=== PATIENT | male | born 1950 | race Caucasian/White ===

== ENCOUNTER 2017-03-08 09:24 | Inpatient (IN) | payer BC ==
--- NOTE | ~2017-03-08 | DS ---
Discharge Summary [facility] [address] [facility] [place]. [address] NAME: MITRA ZAMORA : 48 STATUS : DIS IN PAT#: [id number] AGE: 66 ADM/REG DATE : 03/08/17 MR#: [id number] REPORT SERV DATE: 03/25/17 DICTATED BY: MOHIT AVILES JR. DATE: 03/24/17 REPORT STATUS : Draft TRANSCRIBED BY: MODNathan DATE: 03/24/17 Data Collection from hospitalization DISCHARGE DIAGNOSES: 1. Palpable lymphoma. 2. History of Langerhans cell histiocytosis. 3. Coronary artery disease. 4. History of stroke. 5. History of histiocytic sarcoma. 6. Iron-deficiency anemia. CONSULTATIONS: None. PROCEDURES PERFORMED: Right bronchoscopy, right thoracoscopy with right parietal pleural biopsy, sampling of mediastinal lymph node, right epicardial adenopathy, chemical pleurodesis with Betadine and intercostal nerve block, 03/08/2017. 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 Pleura, right, biopsy-chronic follicular pleuritis, no Langerhans cell histiocytosis, no lymphoma. Pericardial fluid cytology (ThinPrep and cytospin)-abundant lymphocytes cannot exclude involvement by B-cell lymphoproliferative disorder. MEDICATIONS: Aspirin 325 mg daily, Super B with C one capsule daily, [place] 5/325 one to two tablets every four hours as needed. CONDITION AT DISCHARGE: Stable. DISPOSITION: The patient was discharged home on a regular diet with activities as instructed. He would follow up with hi, 04/05/2017. HOSPITAL COURSE: This is a 66-year-old man, who has a history of Langerhans cell histiocytosis. He had an inguinal lymph node biopsy in September 2014, which had revealed Langerhans cell histiocytosis with negative bone marrow biopsy. He had undergone chemotherapy as well as radiation therapy and had been followed with surveillance scanning. A PET-CT on 02/09/2017 demonstrated multiple FDG-avid lesions with one being in the posterior right pleura, measuring 2.2 x 1.3 cm with maximum SUV of 12.5. There was a 3 cm right cardiophrenic angle node with SUV of 10.3 and a 1.5 cm left upper pleural nodule with SUV of 9.7. Other areas of activity includes subcutaneous nodules in the fat layer of the posterior cervical neck, chest, and shoulders and the lesion was in the left biceps, bilateral iliac chain adenopathy, and there was also persistent splenomegaly and enlarging moderate right-sided pleural effusion. Treatment options were discussed and it was elected to proceed with surgical intervention. He was admitted to the hospital at this time for further evaluation and treatment. Upon admission, he was taken to the operating room, where he underwent the above-mentioned procedure. He tolerated this well and there were no complications. On postop day one, urine output was adequate. O2 saturation was 90% on room air. Chest tube remained in place Discharge Summary [place] [id number] [place]. [address] NAME: MITRA ZAMORA : 48 STATUS : DIS IN PAT#: [id number] AGE: 66 ADM/REG DATE : 03/08/17 MR#: [id number] REPORT SERV DATE: 03/25/17 DICTATED BY: MOHIT AVILES JR. DATE: 03/24/17 REPORT STATUS : Draft TRANSCRIBED BY: LUZ DATE: 03/24/17 to suction. A dose of Lasix was given. Over the next couple of days, he continued to have good pain control. Discharge planning was performed. The O2 saturation increased to 98% on room air. The epidural catheter was removed. The tip was intact. On 03/11/2017, he was afebrile. His vital signs were stable. Pathology results were reviewed. Discharge instructions were given. The chest tube was removed. Chest x-ray showed no pneumothorax or effusion. Due to his improved and stable condition, he was discharged home with the above- stated instructions. Information collected by: Naty Barragan I submit the above information as my discharge summary. PARUL/LUZ Mohit Aviles Jr., M.D. / [id number] CC: Milana Mehta Jr., JOSEPH LEE
--- NOTE | ~2017-03-08 | OP ---
Record Of Operation [facility] [address] [place]. [address] NAME: MITRA ZAMORA : 48 STATUS : ADM IN PAT#: [id number] AGE: 66 ADM/REG DATE : 03/08/17 MR#: [id number] REPORT SERV DATE: 03/09/17 DICTATED BY: MOHIT AVILES JR. DATE: 03/08/17 REPORT STATUS : Draft TRANSCRIBED BY: MODNathan DATE: 03/08/17 DATE OF PROCEDURE: 03/08/2017 PREOPERATIVE DIAGNOSIS: History of Langerhans cell histiocytosis versus previous lymphoma status post chemotherapy, recurrent right pleural effusion with mediastinal and chest wall PET avid lesions, known coronary artery disease, history of previous stroke. POSTOPERATIVE DIAGNOSIS: Probable lymphoma. NAME OF OPERATION: Right bronchoscopy, right thoracoscopy with right parietal pleural biopsy, sampling of mediastinal lymph nodes, right epicardial adenopathy, chemical pleurodesis with Betadine, intercostal nerve block. RESIDENT SURGEON: Raymond Cherry MD. DRAWER LINER: Osvaldo Corrigan ANESTHESIA: General endotracheal. FINDINGS: The patient noted was noted to have no endobronchial lesions or contraindication to resection. Upon exploration of his chest, he had approximately a liter and half of serous fluid within the chest cavity and the lung was not trapped. There were 2 areas of abnormality, one in the right lateral chest wall which was seen on PET-CT scan as well as the second in the pericardial phrenic angle, just anterior to the phrenic nerve. There was a cluster of abnormal lymph nodes in this region. This fluid was sent for cytology at the request of the pathologist. The frozen section of the lymph nodes suggested an abnormal lymphocyte proliferation suggestive of a lymphoma. Material was sent for flow cytometry. There was good re-expansion of the lung at the end of the case. Chemical pleurodesis was performed. DETAILS OF OPERATION: After adequate general anesthesia, the patient was intubated. Bronchoscopy was performed noting no endobronchial lesions or contraindication to resection. A left-sided double-lumen endotracheal tube was then placed. The patient was then positioned in the left lateral decubitus position. The right chest was prepped and draped in routine sterile fashion. A small incision made overlying the lower intercostal space. Through this single incision site, the above findings were noted. The fluid was evacuated and sent for cytology. The two regions of abnormality seen on PET scan were easily visualized. Both were sampled and biopsied. One was in the right cardiophrenic angle or in the epicardial space just anterior to the phrenic nerve, the second was in the lateral chest wall. Both these areas were excised. Frozen section confirmed the above findings. A chemical pleurodesis was then performed with Betadine. A 32-Lao chest tube was placed. The lung was reinflated. An intercostal nerve block had been performed. The single trocar incision was closed with running Vicryl sutures. The skin was closed with running monofilament suture. A Dermabond dressing was applied and the procedure was terminated at this point. The patient tolerated the procedure well and taken back to recovery room in stable condition. Record Of Operation [address] [place]. [address] NAME: MITRA ZAMORA : 48 STATUS : ADM IN PAT#: [id number] AGE: 66 ADM/REG DATE : 03/08/17 MR#: [id number] REPORT SERV DATE: 03/09/17 DICTATED BY: MOHIT AVILES JR. DATE: 03/08/17 REPORT STATUS : Draft TRANSCRIBED BY: LUZ DATE: 03/08/17 /LUZ Mohit Aviles Jr., M.D. / [id number] CC: Milana Mehta Jr., M.D. Jonathan T Whaley, MD John Wood, M.D.
[~2017-03-08 09:24] MED LIST: *DENIES; ALTA2.5 PO; AMB10 PO; ASA5GR PO; ASAB PO; ASABAYER PO; BISR PR; COREG6 PO; DIGITEK0.25 MG PO; DSS PO; EZFE 200200 MG PO; IRON OTC PO; K-TABS10 MEQ PO; KLOR-CON 1010 MEQ PO; KLOR-CON M1010 MEQ PO; KONSYL100 % PO; L40 PO; L80 PO; LAN25 PO; LIPITOR40 PO; LOVENOX1C SC; LUNESTA3 MG PO; MIRALAXPKT PO; MOMUD PO; OXYCOD PO; OXYCON20 PO; OXYCON40 PO; P10; P20 PO; PERCOCET1 TA4 PO; PHENADOZ25 MG RE; PLAVIX PO; PR25 PO; PRILOSEC40 MG PO; PROTONIX PO; REG PO; REST15 PO; SENTAB PO; SPIRO50 PO; STERAPRED DS10 MG; STOOL SOFTEN100 MG PO; SUPER B W/C PO; TRAZ50 PO; VITAMIN B PO; ZOFRAN8 PO
[2017-03-08 10:15] LABS: BASOPHILS 0.2 %; BASOPHILS ABSOLUTE 0.01 10/3/uL (0.0-0.16); EOSINOPHILS 1.1 %; EOSINOPHILS ABSOLUTE 0.05 10/3/uL (0.0-0.53); HEMATOCRIT 42.5 % (40.0-51.0); HEMOGLOBIN 15.2 g/dL (13.6-17.8); LYMPHOCYTES ABSOLUTE 0.47 10/3/uL (0.67-4.30); MEAN CORPUS HGB CONC 35.8 g/dL (32.0-36.0); MEAN CORPUSCULAR HEMOGLOB 30.8 pg (26.0-34.0); MEAN PLATELET VOLUME 9.5 fL (9.2-13.0); MONOCYTES 9.5 %; MONOCYTES ABSOLUTE 0.45 10/3/uL (0.21-1.20); NEUTROPHILS 79.2 %; NEUTROPHILS ABSOLUTE 3.74 10/3/uL (2.02-8.40); PLATELET COUNT 116 10/3/uL (150-400); RBC DISTRIBUTION WIDTH 14.6 % (12.0-16.0); RED CELL COUNT 4.94 10/6/uL (4.7-6.1); WHITE BLOOD CELLS 4.7 10/3/uL (4.5-10.5)
[2017-03-08 10:16] LABS: MANUAL DIFF NO %
[2017-03-08 10:20] LABS: INTERNATIONAL NORMAL RATI 1.2 UNITS (-)
[2017-03-08 10:31] LABS: A/G RATIO 1.4 (0.7-1.9); ALBUMIN 3.5 G/DL (3.5-5.0); ALKALINE PHOSPHATASE 52 U/L (45-117); BUN (BLOOD UREA NITROGEN) 26 MG/DL (6-23); CALCIUM, SERUM 8.5 MG/DL (8.5-10.4); CHLORIDE, SERUM 106 MMOL/L (96-112); CO2 (CARBON DIOXIDE) 30 MMOL/L (24-34); GFR AFRICAN AMERICAN 80 ML/MIN (>=60); GFR NON AFRICAN AMERICAN 69 ML/MIN (>=60); GLOBULIN 2.5 G/DL (2.5-4.1); GLUCOSE, SERUM 95 MG/DL (60-99); POTASSIUM, SERUM 4.6 MMOL/L (3.5-5.3); SGOT(AST) 15 U/L (5-40); SGPT(ALT) 18 U/L (5-65); SODIUM, SERUM 140 MMOL/L (135-148); TOTAL BILIRUBIN 1.2 MG/DL (0-1.2)
[2017-03-09 05:56] LABS: BASOPHILS 0 %; EOSINOPHILS 0 %; HEMATOCRIT 44.3 % (40.0-51.0); HEMOGLOBIN 15.7 g/dL (13.6-17.8); IMMATURE GRANULOCYTES 0.1 %; IMMATURE GRANULOCYTES ABSOLUTE 0.01 10/3/uL (0.0-0.11); LYMPHOCYTES 1.9 %; LYMPHOCYTES ABSOLUTE 0.16 10/3/uL (0.67-4.30); MEAN CORPUS HGB CONC 35.4 g/dL (32.0-36.0); MEAN CORPUSCULAR VOLUME 87.4 fL (80-100); MEAN PLATELET VOLUME 9.7 fL (9.2-13.0); MONOCYTES ABSOLUTE 0.25 10/3/uL (0.21-1.20); NEUTROPHILS ABSOLUTE 7.84 10/3/uL (2.02-8.40); PLATELET COUNT 143 10/3/uL (150-400); RBC DISTRIBUTION WIDTH 14.4 % (12.0-16.0); RED CELL COUNT 5.07 10/6/uL (4.7-6.1)
[2017-03-09 05:59] LABS: MANUAL DIFF NO %; WHITE BLOOD CELLS 8.3 10/3/uL (4.5-10.5)
[2017-03-09 06:02] LABS: CALCIUM, SERUM 8.3 MG/DL (8.5-10.4); CHLORIDE, SERUM 104 MMOL/L (96-112); CREATININE 1.51 MG/DL (0.70-1.30); GFR AFRICAN AMERICAN 55 ML/MIN (>=60); GFR NON AFRICAN AMERICAN 47 ML/MIN (>=60); POTASSIUM, SERUM 4.3 MMOL/L (3.5-5.3); SODIUM, SERUM 139 MMOL/L (135-148)
[2017-03-09 06:03] LABS: BUN (BLOOD UREA NITROGEN) 21 MG/DL (6-23); CO2 (CARBON DIOXIDE) 24 MMOL/L (24-34); GLUCOSE, SERUM 225 MG/DL (60-99)
[2017-03-10 05:14] LABS: BUN (BLOOD UREA NITROGEN) 24 MG/DL (6-23); CALCIUM, SERUM 8.3 MG/DL (8.5-10.4); CHLORIDE, SERUM 103 MMOL/L (96-112); CREATININE 1.34 MG/DL (0.70-1.30); GFR AFRICAN AMERICAN 63 ML/MIN (>=60); GFR NON AFRICAN AMERICAN 54 ML/MIN (>=60); POTASSIUM, SERUM 4.6 MMOL/L (3.5-5.3); SODIUM, SERUM 139 MMOL/L (135-148)
[2017-03-10 05:15] LABS: CO2 (CARBON DIOXIDE) 30 MMOL/L (24-34); GLUCOSE, SERUM 119 MG/DL (60-99)
[2017-03-11 05:06] LABS: CALCIUM, SERUM 8.1 MG/DL (8.5-10.4); CHLORIDE, SERUM 105 MMOL/L (96-112); CO2 (CARBON DIOXIDE) 28 MMOL/L (24-34); CREATININE 1.18 MG/DL (0.70-1.30); GFR AFRICAN AMERICAN 74 ML/MIN (>=60); GFR NON AFRICAN AMERICAN 63 ML/MIN (>=60); GLUCOSE, SERUM 106 MG/DL (60-99); POTASSIUM, SERUM 4.5 MMOL/L (3.5-5.3); SODIUM, SERUM 139 MMOL/L (135-148)
[2017-03-11 05:08] LABS: BUN (BLOOD UREA NITROGEN) 19 MG/DL (6-23)
[2017-03-11] MEDS ORDERED: NORCO1 TA1 PO (11:08)
== END 2017-03-11 12:50 | disposition home or self-care (01) | DRG 821 ==
LOC: SDC/OF 09:24 → 5NO 19:34
PROVIDERS: Nurse Practitioner Acute Care; Thoracic Surgery (Cardiothoracic Vascular Surgery)
PROC: 07B74ZZ Excision of Thorax Lymphatic, Percutaneous Endoscopic Approach (ICD-10-PCS; 2017-03-08)
PROC: 3E0L3GC Introduction of Other Therapeutic Substance into Pleural Cavity, Percutaneous Approach (ICD-10-PCS; 2017-03-08)
PROC: 3E0T3BZ Introduction of Anesthetic Agent into Peripheral Nerves and Plexi, Percutaneous Approach (ICD-10-PCS; 2017-03-08)
PROC: 0BBN4ZX Excision of Right Pleura, Percutaneous Endoscopic Approach, Diagnostic (ICD-10-PCS; principal; 2017-03-08 11:30)
DX: C85.92 Non-Hodgkin lymphoma, unspecified, intrathoracic lymph nodes (principal); J90 Pleural effusion, not elsewhere classified; I25.10 Atherosclerotic heart disease of native coronary artery without angina pectoris; Z85.79 Personal history of other malignant neoplasms of lymphoid, hematopoietic and related tissues
CPT/HCPCS: 36415; 71020; 80048; 80053; 82962; 85025; 85610; 86850; 86900; 86901; 87641; 88112; 88305; 88307; 88331; 88333; 88341; 88342; 88360; 88367; 93005; 94640; A9270-GY; G0463; J0690; J1940; J2250; J2370; J2405; J2440; J2710; J2795; J3010; J3370; P9045